=== PATIENT | female | born 1955 | race Caucasian/White ===

== ENCOUNTER → 2016-09-17 | Outpatient (CLI) | payer OTHER ==
[2016-09-17 13:32] LABS: HEMATOCRIT 39.9 % (37-47)
[2016-09-17 14:48] LABS: ALT/SGPT 65 U/L (12-78); BLOOD UREA NITROGEN 7 mg/dl (7-18); CARBON DIOXIDE 23 mmol/L (21-32); CHLORIDE 108 mmol/L (98-107); CHOLESTEROL 184 mg/dl (0-200); CREATININE 0.68 mg/dl (0.60-1.20); GLUCOSE 99 mg/dl (70-99); POTASSIUM 3.9 mmol/L (3.5-5.1); SODIUM 142 mmol/L (136-145)
[2016-09-17 14:54] LABS: CHOLESTEROL/HDL RATIO 4.3; HDL CHOLESTEROL 43 mg/dl; LDL CHOLESTEROL CALCULATED 112 mg/dl; TRIGLYCERIDES 146 mg/dl (0-150); VERY LOW DENSITY LIPOPROT CALC 29 mg/dl
== END | disposition home or self-care (01) ==
LOC: C.LABMFLN 08:47
PROVIDERS: ATTEND Family Medicine
DX: E78.00 Pure hypercholesterolemia, unspecified (principal); D68.59 Other primary thrombophilia

== ENCOUNTER → 2017-11-12 | Outpatient (CLI) | payer OTHER ==
[2017-11-12 13:25] LABS: INR 1.5 (0.9-1.1)
== END | disposition home or self-care (01) ==
LOC: C.LAB1850 12:03
PROVIDERS: ATTEND Family Medicine
DX: D68.59 Other primary thrombophilia (principal)